=== PATIENT | female | born 1955 | race Caucasian/White ===

== ENCOUNTER 2017-05-09 20:28 | Emergency (ER) | payer MEDICARE ==
[~2017-05-09] VITALS: Ht 167.6 cm; Wt 95.9 kg
[2017-05-09] MEDS ORDERED: NS 1,000 ML IV ONE (21:45)
[2017-05-09] MEDS ORDERED: METOCLOPRAMIDE INJ 10MG/2ML VIAL (J2765) IV ONE (21:45)
[2017-05-09] MEDS ORDERED: MORPHINE 4 MG/ML 1ML SYRINGE IV PRN (21:45)
[2017-05-09 21:57] LABS: BASO # 0.1 10^3/uL (0.0-0.2); BASO % 0.6 % (0.0-1.0); EOS # 0.2 10^3/uL (0.0-0.50); EOS % 1.4 % (0.0-3.0); IMMATURE GRANULOCYTE % 0.4 % (0-0); LYMPH # 3.3 10^3/uL (1.5-4.5); LYMPH % 31.4 % (24.0-44.0); MEAN CORPUSCULAR HEMOGLOBIN 29.7 pg (27.0-33.0); MEAN CORPUSCULAR HGB CONC 32.3 g/dl (32.0-36.5); MEAN CORPUSCULAR VOLUME 92.2 fl (80.0-96.0); MONO # 0.6 10^3/uL (0.0-0.8); MONO % 5.3 % (0.0-5.0); NEUTROPHILS # 6.4 10^3/uL (1.8-7.7); NEUTROPHILS % 60.9 % (36.0-66.0); PLATELET COUNT, AUTOMATED 312 10^3/uL (150-450); RED CELL DISTRIBUTION WIDTH 12.4 % (11.5-14.5); WHITE BLOOD COUNT 10.5 10^3/uL (4.0-10.0)
[2017-05-09 22:02] LABS: ADD MORPHOLOGY? NO
[2017-05-09 22:26] LABS: ALBUMIN 3.2 GM/DL (3.2-5.2); ALBUMIN/GLOBULIN RATIO 0.94 (1.00-1.93); ALKALINE PHOSPHATASE 87 U/L (45-117); ALT/SGPT 32 U/L (12-78); ANION GAP 8 MEQ/L (8-16); AST/SGOT 35 U/L (15-37); BILIRUBIN,DIRECT < 0.1 MG/DL (0.0-0.2); BILIRUBIN,TOTAL 0.2 MG/DL (0.2-1.0); BLOOD UREA NITROGEN 25 MG/DL (7-18); CALCIUM LEVEL 9.1 MG/DL (8.8-10.2); CARBON DIOXIDE LEVEL 27 MEQ/L (21-32); CHLORIDE LEVEL 106 MEQ/L (98-107); CREATININE FOR GFR 0.85 MG/DL (0.55-1.02); GLOMERULAR FILTRATION RATE > 60.0 (>45); GLUCOSE, FASTING 155 MG/DL (80-110); POTASSIUM SERUM 4.7 MEQ/L (3.5-5.1); SODIUM LEVEL 141 MEQ/L (136-145); TOTAL PROTEIN 6.6 GM/DL (6.4-8.2)
[2017-05-09] MEDS ORDERED: GASTROGRAFIN SOLUTION 30ML (Q9963) As Ordered ONE (23:02)
[2017-05-09] MEDS ORDERED: GASTROGRAFIN SOLUTION 30ML (Q9963) PO ONE ×2 (23:15)
[2017-05-10] MEDS ORDERED: ISOVUE-370 76% 100ML VIAL (Q9967) As Ordered ONE (00:20)
[2017-05-10] MEDS ORDERED: CALC600T60 PO (00:46)
[2017-05-10] MEDS ORDERED: SIMV20TA2 PO (00:46)
[2017-05-10] MEDS ORDERED: BIOTCAP PO (00:46)
[2017-05-10] MEDS ORDERED: FURO20TA2 PO (00:46)
[2017-05-10] MEDS ORDERED: B121000T PO (00:46)
[2017-05-10] MEDS ORDERED: GABA600T PO (00:46)
[2017-05-10] MEDS ORDERED: ZANTTAB PO (00:46)
[2017-05-10] MEDS ORDERED: METF500T4 PO (00:46)
[2017-05-10] MEDS ORDERED: MULT1CHW39 PO (00:46)
[2017-05-10] MEDS ORDERED: OMEP20CA3 PO (00:46)
[2017-05-10] MEDS ORDERED: ASPIPOW (00:46)
[2017-05-10] MEDS ORDERED: ONDA4TAB5 PO (00:46)
[2017-05-10] MEDS ORDERED: MELA10TA PO (00:46)
[2017-05-10] MEDS ORDERED: NAPR500T3 PO (00:46)
[2017-05-10] MEDS ORDERED: APRI0.37 PO (00:46)
[2017-05-10] MEDS ORDERED: LISI10TA4 PO (00:46)
--- NOTE | 2017-05-10 01:10 | REPUSA ---
CLINICAL HISTORY: Abdominal pain. TECHNIQUE: Multiple axial, sagittal and coronal CT images were obtained through the abdomen and pelvi s without administration of oral or IV contrast material. COMMENTS: The liver is enlarged with decreased attenuation without mass or defect. There is no intra or extrahe patic biliary ductal dilatation. The spleen is normal. The gallbladder is distended. The pancreas is of normal contour and attenuation characteristics. There is no evidence of adrenal mass. The kidneys are normal in size, shape and configuration. No renal or ureteral calculi are identified. There is no hydroureter or hydronephrosis. There is no bowel wall thickening. No evidence for small or large bowel obstruction. There is no evid ence of abdominal ascites or lymphadenopathy. There is no evidence of intrinsic or extrinsic bladder mass. There is no pelvic ascites or lymphadeno mikayla. Mild large bowel fecal stasis. Uncomplicated colonic diverticulosis. Images of the lung bases show no evidence of pleural or parenchymal mass. There are no pleural effusi ons. The bony structures are free of lytic or blastic lesions. Multilevel degenerative changes are seen in volving the thoracolumbar spine. Scattered calcifications are seen involving the aorta and major branches compatible with atherosclero sis. IMPRESSION: Mild large bowel fecal stasis. Hepatomegaly with fatty infiltration. Distended gallbladder. Prior appendectomy. Thank you for your kind referral of this patient.
[2017-05-10 01:50] VITALS: BP 142/71
[2017-05-10] MEDS ORDERED: PRED20TA PO (02:14)
[2017-05-10] MEDS ORDERED: OXYCODONE/APAP 5MG/325MG(BULK FOR ED) 1 TABLET PO ONE (02:15)
[2017-05-10] MEDS ORDERED: methylPREDNISolone INJ 125 MG/2 ML VIAL (J2930) IV ONE (02:15)
[2017-05-10] MEDS ORDERED: PERC5TAB12 PO (02:17)
--- NOTE | 2017-05-10 06:32 | ECGEPIP ---
Stationary ECG Study [facility] - ED Test Date: 2017-05-09 Pat Name: AMARA EDEN Department: Room: - Gender: F Oxyacetylene Welder: leila : 1955 Requested By: YEE Antoine Order Number: [id number] Reading MD: Westley Glass Measurements Intervals Douglas Rate: 80 P: 61 MN: 128 QRS: 15 QRSD: 89 T: 61 QT: 406 QTc: 471 Interpretive Statements SINUS RHYTHM NO PRIORS Electronically Signed On 05-10-2017 6:32:17 EDT by Westley Glass
== END 2017-05-10 02:22 | disposition home or self-care (01) ==
LOC: EDBD 20:28 → M ED 20:28
DX: K50.90 Crohn's disease, unspecified, without complications (principal); Z79.84 Long term (current) use of oral hypoglycemic drugs; Z79.899 Other long term (current) drug therapy; Z88.1 Allergy status to other antibiotic agents; Z88.2 Allergy status to sulfonamides
CPT/HCPCS: 74176; 80048; 80076; 82550; 82553; 83690; 84484; 85025; 93005; 93041; 96374; 96375; 99285; J2765; J2930; Q9963